=== PATIENT | male | born 1960 | race Asian ===

== ENCOUNTER 2022-07-12 20:47 | Inpatient (IN) | payer MEDICAID ==
[~2022-07-12] VITALS: Ht 167.6 cm; Wt 54.9 kg
[~2022-07-12 20:47] MED LIST: ACET-2605 GT; ACET-868 GT; ACET160S GT; ATOR80TA GT; CALC-494 GT; CHLO473M3 MM; CLON0.1T GT; FAMO20TA8 GT; INSU100V39 SQ; INSU100V7 SQ; IPRA12.9 IH; IPRA12.9 INH; LACT100027 GT; LEVE500T9 GT; MAG30ORA GT; NA P133E RC
--- NOTE | 2022-07-12 20:57 | NUR ---
CHAPARRITA FROM [facility] C/O COVID POSITIVE & GEN WEAKNESS. PT A/OX1. NONVERBAL. PT TOLERATING R/A WELL WITH NO RESP DISTRESS; COUGH NOTED. GTUBE INTACT. SAFETY MEASURES IN PLACE.
[2022-07-12] MEDS ORDERED: LIDOCAINE 2% JEL UROJET 10 ML MM ONE (21:52)
[2022-07-12 22:00] LABS: BASOPHILS # (AUTO) 0.1 K/uL (0.0-0.2); BASOPHILS % (AUTO) 1.2 % (0.0-2.0); HEMATOCRIT 35 % (39-51); HEMOGLOBIN 11.7 g/dL (13.5-17.5); LYMPHOCYTES # (AUTO) 1.5 K/uL (0.8-4.8); LYMPHOCYTES % (AUTO) 28.2 % (20.0-44.0); MEAN CORPUSCULAR HGB CONC 33 g/dl (31.0-36.0); MEAN CORPUSCULAR VOLUME 96 fL (80-96); MONOCYTES # (AUTO) 0.8 K/uL (0.1-1.30); MONOCYTES % (AUTO) 15.9 % (2.0-12.0); NEUTROPHILS # (AUTO) 2.7 K/uL (1.8-8.9); NEUTROPHILS % (AUTO) 51.7 % (43.0-81.0); PLATELET COUNT (AUTO) 403 K/uL (150-450); WHITE BLOOD COUNT (AUTO) 5.2 K/uL (4.3-11.0)
--- NOTE | 2022-07-12 22:10 | NUR ---
PT TAKEN TO CT VIA [facility]
--- NOTE | 2022-07-12 22:10 | NUR ---
URINE COLLECTED AND SENT TO LAB
[2022-07-12 22:13] LABS: CALCIUM, SERUM 8.9 mg/dL (8.5-10.1); CARBON DIOXIDE 31 mmol/L (21-32); CHLORIDE 101 mmol/L (98-107); CREATININE 0.7 mg/dL (0.6-1.3); GLUCOSE 102 mg/dL (74-106); POTASSIUM 4.4 mmol/L (3.5-5.1); SODIUM SERUM 137 mmol/L (136-145); UREA NITROGEN, BLOOD 24 mg/dL (7-18)
[2022-07-12 22:19] LABS: ALANINE AMINOTRANSFERASE 53 U/L (12-78); ALBUMIN 3.4 g/dL (3.4-5.0); ALKALINE PHOSPHATASE 113 U/L (46-116); ASPARTATE AMINOTRANSFERASE 22 U/L (15-37); BILIRUBIN,DIRECT 0.1 mg/dL (0.0-0.2); BILIRUBIN,TOTAL 0.4 mg/dL (0.2-1.0); TOTAL PROTEIN, SERUM 7.6 g/dL (6.4-8.2)
[2022-07-12 22:56] LABS: BILIRUBIN,URINE NEGATIVE (NEGATIVE); COLOR,URINE YELLOW (YELLOW); LEUKOCYTE ESTERASE ,URINE 2+ (NEGATIVE); NITRITE, URINE NEGATIVE (NEGATIVE); PH,URINE 7.5 (5.0-8.0); PROTEIN,URINE NEGATIVE (NEGATIVE); UGLUCOSE NEGATIVE (NEGATIVE); UROBILINOGEN,URINE 0.2 EU/dL (0.2)
[2022-07-12 23:03] LABS: BACTERIA,URINE Rare /HPF (None Seen); RBC,URINE 21-50 /HPF (0-2); SQUAMOUS EPITHELIAL CELL,UR Few /HPF (None Seen)
[2022-07-12 23:07] LABS: BASOPHILS % (MANUAL) 0 % (0.0-2.0); EOSINOPHILS % (MANUAL) 2 % (0-4); LYMPHOCYTES % (MANUAL) 24 % (16-48); MONOCYTES % (MANUAL) 13 % (0-11.0); NEUTROPHILS % (MANUAL) 61 (42-76)
[2022-07-12] MEDS ORDERED: CEPH250S GT (23:16)
--- NOTE | 2022-07-13 00:50 | NUR ---
SPOKE TO DESTINY AT [facility] AND INFORMED HER ABOUT PATIENT'S DISCHARGE. LEFT A MESSAGE FOR DON: [phone]
--- NOTE | 2022-07-13 00:57 | NUR ---
REPORT GIVEN TO DESTINY GILMAN AT [facility] FOR KARLENE
--- NOTE | 2022-07-13 01:01 | NUR ---
[facility] ETA: 75-90 MIN
--- NOTE | 2022-07-13 02:05 | NUR ---
[facility] AT BED SIDE TO INSTITUTIONAL RESEARCH DIRECTOR THE PT
--- NOTE | 2022-07-13 02:16 | NUR ---
PT DC TO [facility] VIA [facility]. VSS
--- NOTE | 2022-07-13 03:11 | NUR ---
PT RETURNED TO [facility] VIA [facility]. PER MINDEN AUTOMATIC TOE LASTER REUFSED PT TO DC TO FACILITY. VSS
--- NOTE | 2022-07-13 05:37 | NUR ---
PT IN BED. VSS. NO RESP DISTRESS NOTED ON R/A. SAFETY MEASURES IN PLACE.
--- NOTE | 2022-07-13 07:46 | NUR ---
COVID PCR SWAB OBTAINED AND SENT TO LAB
[2022-07-13] MEDS ORDERED: ZINC1CAP2 GT (07:58)
[2022-07-13] MEDS ORDERED: ASCO-340 GT (07:58)
[2022-07-13] MEDS ORDERED: MULT-447 GT (07:58)
[2022-07-13] MEDS ORDERED: ALBU8.5H8 IH (07:58)
--- NOTE | 2022-07-13 08:00 | NUR ---
MOVE SHEET SUBMITTED.
--- NOTE | 2022-07-13 08:34 | NUR ---
bed assigned [id number]
--- NOTE | 2022-07-13 08:40 | NUR ---
REPORT GIVEN TO CEASAR CHARGE NURSE. AWAITING TRANSFER TO FLOOR.
[2022-07-13 10:00] VITALS: BP 123/87
[2022-07-13] MEDS ORDERED: ZOLPIDEM TARTRATE 5 MG TABLET PO PRN (10:00)
[2022-07-13] MEDS ORDERED: MAGNESIUM HYDROXIDE 30 ML UDC PO PRN (10:00)
[2022-07-13] MEDS ORDERED: MAG HYDROX/AL HYDROX/SIMETH 30 ML UDC PO PRN (10:00)
[2022-07-13] MEDS ORDERED: Z GUARD REMEDY 4 OZ OINT TP PRN (10:00)
[2022-07-13] MEDS ORDERED: ACETAMINOPHEN 325 MG TABLET PO PRN ×2 (10:00→18:30)
[2022-07-13] MEDS ORDERED: ONDANSETRON HCL/PF 4 MG/2 ML VIAL IVP PRN (10:00)
--- NOTE | 2022-07-13 10:30 | NUR ---
MED-ASSOCIATE STORE DIRECTORELECTRO OPTICS ENGINEER NOTE: REPORT TAKEN FROM ANETA FERNÁNDEZ RN. RECEIVED PT. FROM ER VIA GURNEY AT 1000. PT. NON-VERBAL, ABLE TO MAKE UNCLEAR WORDS AND ABLE TO NOD HEAD WITH YES/NO QUESTIONS. A0X1, TO SELF ONLY. NO COMPLAINTS OF PAIN/DISCOMFORT AT THIS TIME. VS STABLE. ON RA, NO S/S OF RESPIRATORY DISTRESS. PT. HAS GENERALIZED WEAKNESS AND R LOWER EXTREMITY IS RIGID. PT. INCONTINENT, ON NON-ABSORBENT PAD, DRAINING YELLOW URINE. SKIN INTACT. PT. HAS G-TUBE, NO RESIDUAL NOTED AND CLAMPED. IV ACCESS ON L HAND #20G, PATENT AND SALINE LOCKED. NO S/S OF INFILTRATION NOTED. SAFETY MEASURES IN PLACE: BED IN LOWEST & LOCKED POSITION, SIDE RAILS UP, HOB ELEVATED AT 30 DEGREES, BED ALARM ON, CALL LIGHT WITHIN REACH. WILL ENCOURAGE FREQUENT REPOSITIONING IN BED AT LEAST Q2H. WILL CONTINUE TO MONITOR FOR ANY CHANGES.
[2022-07-13] MEDS: CEFTRIAXONE 1 G in IV D5W 50 ML IV SCH (11:07)
[2022-07-13 12:00] VITALS: BP 108/80
[2022-07-13 16:00] VITALS: BP 108/76
[2022-07-13] MEDS ORDERED: CALCIUM CARBONATE 500 MG TAB.CHEW GT PRN (18:30)
[2022-07-13] MEDS ORDERED: CLONIDINE HCL 0.1 MG TABLET GT PRN (18:30)
[2022-07-13] MEDS ORDERED: ACETAMINOPHEN ES 500 MG TABLET GT PRN (18:30)
[2022-07-13] MEDS ORDERED: MAG HYDROX/AL HYDROX/SIMETH 30 ML UDC GT PRN (18:30)
[2022-07-13] MEDS ORDERED: NA PHOS,M-B/NA PHOS,DI-BA 1 EA ENEMA RC PRN (18:30)
[2022-07-13] MEDS ORDERED: ALBUTEROL SULFATE 8 GM HFA.AER.AD IH PRN (18:30)
--- NOTE | 2022-07-13 19:05 | NUR ---
MED-ROTATING FIELD ASSEMBLER CLOSING NOTE: PT. REMAINS IN BED, NON-VERBAL, ABLE TO MAKE UNCLEAR WORDS AND ABLE TO NOD HEAD WITH YES/NO QUESTIONS. A0X1, TO SELF ONLY. NO COMPLAINTS OF PAIN/DISCOMFORT AT THIS TIME. VS STABLE THROUGHOUT SHIFT. STILL ON RA, NO S/S OF RESPIRATORY DISTRESS. VOIDED 3X AND 1 BM THIS SHIFT. G-TUBE REMAINS CLAMPED, NO RESIDUAL NOTED. ON CARDIAC DIET, NO S/S OF ASPIRATION NOTED. IV ACCESS ON L HAND #20G, PATENT AND SALINE LOCKED. NO S/S OF INFILTRATION NOTED. SAFETY MEASURES MAINTAINED: BED IN LOWEST & LOCKED POSITION, SIDE RAILS UP, HOB ELEVATED AT 30 DEGREES, BED ALARM ON, CALL LIGHT WITHIN REACH. ENCOURAGED FREQUENT REPOSITIONING IN BED AT LEAST Q2H. ENDORSED CONTINUITY OF CARE TO GUNNER'S MATE RN.
[2022-07-13 20:00] VITALS: BP 121/80
[2022-07-13] MEDS: LEVETIRACETAM (250 MG) 250 MG TABLET PO SCH (21:33)
[2022-07-13] MEDS: FAMOTIDINE (20 MG) 20 MG TABLET GT SCH (21:33)
[2022-07-13] MEDS: ATORVASTATIN 40 MG TABLET GT SCH (21:33)
[2022-07-13] MEDS: INSULIN GLARGINE, 100 UNIT/ML CARTRIDGE SQ SCH (23:46)
[2022-07-14 04:00] VITALS: BP 119/79
[2022-07-14] MEDS: IPRATROPIUM BROMIDE 14 GM INHALER (or 12.9 GM) IH SCH ×4 (06:05→17:16)
--- NOTE | 2022-07-14 06:42 | NUR ---
MS RN CLOSING NOTE PT IN BED, AWAKE, ALERT, BUT NON-VERBAL; ABLE TO SAY SIMPLE WORDS IN TAGAOLOG, BUT MAINLY MAKES MUMBLING/GURGLING SOUNDS; UNABLE TO CARRY ON CONVERSATION. PT ON RA WITH O2SAT RANGING FROM 95%-99% THROUGHOUT THE NIGHT; NO S/S OF RESP DISTRESS, NO SOB OR COUGH, NON-LABORED AND EQUAL BREATHING. VSS THROUGHOUT THE WHOLE NIGHT WITH NO SIGNIFICANT CHANGES. LEFT HAND 20G INTACT AND PATENT, NO MEDS/FLUIDS INFUSING THROUGH IT. GT REMAINS CLAMPED. ALL DUE MEDS ADMINISTERED DURING THE NIGHT. BED IN LOWEST POSITION, CALL LIGHT WITHIN REACH, SIDE RAILS UP X3. WILL ENDORSE TO DAYSHIFT NURSE TO CONTINUE CARE.
[2022-07-14 07:13] LABS: BASOPHILS # (AUTO) 0.1 K/uL (0.0-0.2); BASOPHILS % (AUTO) 1.1 % (0.0-2.0); EOSINOPHILS % (AUTO) 1.6 % (0.0-6.0); HEMATOCRIT 40 % (39-51); HEMOGLOBIN 12.9 g/dL (13.5-17.5); LYMPHOCYTES # (AUTO) 1.6 K/uL (0.8-4.8); LYMPHOCYTES % (AUTO) 30.6 % (20.0-44.0); MEAN CORPUSCULAR HGB CONC 33 g/dl (31.0-36.0); MEAN CORPUSCULAR VOLUME 96 fL (80-96); MONOCYTES # (AUTO) 0.7 K/uL (0.1-1.30); MONOCYTES % (AUTO) 13.6 % (2.0-12.0); NEUTROPHILS # (AUTO) 2.8 K/uL (1.8-8.9); NEUTROPHILS % (AUTO) 53.1 % (43.0-81.0); PLATELET COUNT (AUTO) 436 K/uL (150-450); RED BLOOD CELL COUNT(AUTO) 4.13 MIL/uL (4.5-6.0); WHITE BLOOD COUNT (AUTO) 5.3 K/uL (4.3-11.0)
[2022-07-14 07:49] LABS: CREATININE 0.8 mg/dL (0.6-1.3); MAGNESIUM 2.1 mg/dL (1.8-2.4); PHOSPHORUS 4.2 mg/dL (2.5-4.9); POTASSIUM 3.9 mmol/L (3.5-5.1)
[2022-07-14 07:58] LABS: THYROID STIMULATING HORMONE 0.677 uIU/mL (0.358-3.74)
[2022-07-14] MEDS: PANTOPRAZOLE 40 MG TABLET.DR PO SCH (08:45)
[2022-07-14] MEDS ORDERED: ACETAMINOPHEN 650 MG/20.3 ML UDC GT SCH (09:00)
[2022-07-14] MEDS: CHLORHEXIDINE GLUCONATE 15 ML UDC MM SCH ×2 (09:00→17:17)
[2022-07-14] MEDS: LEVETIRACETAM (250 MG) 250 MG TABLET PO SCH ×2 (10:00→20:38)
[2022-07-14] MEDS: FAMOTIDINE (20 MG) 20 MG TABLET GT SCH ×2 (10:01→20:38)
[2022-07-14] MEDS: ACETAMINOPHEN 325 MG TABLET PO SCH (10:05)
--- NOTE | 2022-07-14 10:31 | NUR ---
RN OPEN NOTE PT IN BED, AWAKE, ALERT, ABLE TO SAY SIMPLE WORDS IN TAGAOLOG, BUT MAINLY MAKES MUMBLING/GURGLING SOUNDS; UNABLE TO CARRY ON CONVERSATION. PT ON RA WITH O2SAT TOLERATING WELL, NO S/S OF RESP DISTRESS, NO SOB OR COUGH, NON-LABORED AND EQUAL BREATHING. VSS THROUGHOUT THE WHOLE NIGHT WITH NO SIGNIFICANT CHANGES. LEFT HAND 20G INTACT AND PATENT, NO MEDS/FLUIDS INFUSING THROUGH IT. GT REMAINS CLAMPED. ALL DUE MEDS ADMINISTERED DURING THE NIGHT. BED IN LOWEST POSITION, CALL LIGHT WITHIN REACH, SIDE RAILS UP X3. SEEN BY PT, PER PT PATIENT CAN SIT AT THE EDGE OF THE BED WITH ASSIST. NOTED PATIENT WITH GT BUT EATING ORALLY, INFORMED DR. ALVARADO. WILL CONTINUE PLAN OF CARE.
[2022-07-14] MEDS: CEFTRIAXONE 1 G in IV D5W 50 ML IV SCH (10:36)
[2022-07-14 12:00] VITALS: BP 118/76
[2022-07-14] MEDS ORDERED: ASCORBIC ACID 500 MG TABLET GT SCH (18:00)
[2022-07-14] MEDS ORDERED: ZINC SULFATE 220 MG CAPSULE GT SCH (18:00)
[2022-07-14] MEDS ORDERED: MULTIVIT W/MINERALS 1 TAB TABLET GT SCH (18:00)
--- NOTE | 2022-07-14 18:16 | NUR ---
RN CLOSING NOTE: PT IN BED, AWAKE, ALERT, ABLE TO SAY SIMPLE WORDS IN TAGAOLOG, BUT MAINLY MAKES MUMBLING/GURGLING SOUNDS; UNABLE TO CARRY ON CONVERSATION. PT ON RA WITH O2SAT TOLERATING WELL, SATING AT 97% , NO S/S OF RESP DISTRESS, NO SOB OR COUGH, NON-LABORED AND EQUAL BREATHING. VSS THROUGHOUT THE WHOLE NIGHT WITH NO SIGNIFICANT CHANGES. LEFT HAND 20G INTACT AND PATENT, NO MEDS/FLUIDS INFUSING THROUGH IT. GT REMAINS CLAMPED. ALL DUE MEDICATIONS GIVEN, NO SEIZURE EPISODE. BED IN LOWEST POSITION, CALL LIGHT WITHIN REACH, SIDE RAILS UP X3. NOTED PATIENT WITH GT BUT EATING ORALLY, DR. ALVARADO IS AWARE, NO NEW ORDERS.WILL ENDORSE TO INVENTORY AUDIT CLERK NURSE FOR KARLENE. .
--- NOTE | 2022-07-14 19:10 | NUR ---
RN MED SURGE OPEN NOTE: AWAKE. EYES OPEN. VERBALLY RESPONSIVE TO VERBAL STIMULI. IV ON LEFT HAND G20 SALINE LOCKED, PATENT WITH NO S/S OF COMPLICATIONS. GT IN PLACE PATENT NO RESIDUAL. HOB ELEVATED SEMI-FOWLERS POSITION. BED IS IN LOW POSITION, LOCKED, EXIT ALARM ON, BILATERAL HALF SIDE RAILS UP X2. CALL LIGHT WITHIN REACH. ISOLATION PRECAUTIONS MAINTAINED.
[2022-07-14 20:00] VITALS: BP 129/80
[2022-07-14] MEDS: ATORVASTATIN 40 MG TABLET GT SCH (20:38)
[2022-07-14] MEDS: INSULIN GLARGINE, 100 UNIT/ML CARTRIDGE SQ SCH (22:55)
[2022-07-15 04:00] VITALS: BP 131/52
--- NOTE | 2022-07-15 07:00 | NUR ---
RN MED SURGE CLOSING NOTE: AWAKE. EYES OPEN. VERBALLY RESPONSIVE TO VERBAL STIMULI. IV ON LEFT HAND G20 SALINE LOCKED, PATENT WITH NO S/S OF COMPLICATIONS. GT IN PLACE PATENT NO RESIDUAL.KEPT CLEAN AND DRY. INCONTINENT OF URINE. HOB ELEVATED SEMI-FOWLERS POSITION. BED IS IN LOW POSITION, LOCKED, EXIT ALARM ON, BILATERAL HALF SIDE RAILS UP X2. CALL LIGHT WITHIN REACH. ISOLATION PRECAUTIONS MAINTAINED.
[2022-07-15] MEDS: IPRATROPIUM BROMIDE 14 GM INHALER (or 12.9 GM) IH SCH ×3 (07:06→12:09)
[2022-07-15] MEDS: FAMOTIDINE (20 MG) 20 MG TABLET GT SCH (08:53)
[2022-07-15] MEDS: LEVETIRACETAM (250 MG) 250 MG TABLET PO SCH (08:54)
[2022-07-15] MEDS: ACETAMINOPHEN 325 MG TABLET PO SCH (08:54)
[2022-07-15] MEDS: PANTOPRAZOLE 40 MG TABLET.DR PO SCH (08:54)
[2022-07-15] MEDS: CHLORHEXIDINE GLUCONATE 15 ML UDC MM SCH ×2 (08:54→17:00)
[2022-07-15] MEDS: CEFTRIAXONE 1 G in IV D5W 50 ML IV SCH (12:09)
--- NOTE | 2022-07-15 16:26 | NUR ---
REPORT GIVEN TO ISAAC GILMAN FROM [facility]WAITS TRANSPORTATION.
--- NOTE | 2022-07-15 17:17 | NUR ---
RN NOTE PATIENT DISCHARGED VIA AMBULANCE CREW IN STABLE CONDITION. IV ACCESS REMOVED, CATHETER INTACT, NO S/S BLEEDING. ID BAND REMOVED. ALL BELONGINGS LIST SIGNED. DISCHARGE PACKET GIVEN TO AMBULANCE CREW. CHARGE NURSE AWARE.
== END 2022-07-15 17:31 | DRG 137 ==
LOC: ER 20:49 → MEDSG1 07-13 08:56
PROVIDERS: ADMIT Student in an Organized Health Care Education/Training Program; ATTEND Student in an Organized Health Care Education/Training Program
DX: U07.1 COVID-19 (principal); J15.6 Pneumonia due to other Gram-negative bacteria; E86.0 Dehydration; D64.9 Anemia, unspecified; E11.9 Type 2 diabetes mellitus without complications; E78.5 Hyperlipidemia, unspecified; G40.909 Epilepsy, unspecified, not intractable, without status epilepticus; N39.0 Urinary tract infection, site not specified; I25.10 Atherosclerotic heart disease of native coronary artery without angina pectoris; Z86.73 Personal history of transient ischemic attack (TIA), and cerebral infarction without residual deficits; Z98.890 Other specified postprocedural states; Z87.09 Personal history of other diseases of the respiratory system; Z79.51 Long term (current) use of inhaled steroids; Z79.4 Long term (current) use of insulin; Z79.899 Other long term (current) drug therapy; R79.89 Other specified abnormal findings of blood chemistry; J98.8 Other specified respiratory disorders
CPT/HCPCS: 36415; 70450-TC; 71045-TC; 80048-TC; 80076-TC; 81001; 82962-TC; 83735-TC; 84100-TC; 84443-TC; 84484-TC; 85025-TC; 85378-TC; 86140-TC; 87081-TC; 87086-TC; 97110-TC; 97112-TC; 97530-TC; 97535-TC; G0378; J0696; J1815; J3490; J7050; J7060; U0003